=== PATIENT | female | born 1960 | race Asian ===

== ENCOUNTER 2018-06-24 17:46 | Emergency (ER) | payer SELFPAY ==
[~2018-06-24] VITALS: Ht 152.4 cm; Wt 58.6 kg
[2018-06-24 19:15] LABS: RAPID INFLUENZA A Negative (Negative); RAPID INFLUENZA B Negative (Negative)
--- NOTE | 2018-06-24 19:24 | NUR ---
ACHING ALL OVER, FEVER, ABD BLOATING X 1 DAY per triage note
[2018-06-24] MEDS ORDERED: KETOROLAC 30 MG/1 ML IVPush ONE (19:30)
[2018-06-24] MEDS ORDERED: KETOROLAC 30 MG/1 ML ONE (19:47)
--- NOTE | 2018-06-24 19:48 | NUR ---
ua in lab
[2018-06-24] MEDS ORDERED: KETOROLAC 30 MG/1 ML IM ONE (20:00)
[2018-06-24 20:02] LABS: BASOPHILS # (AUTO) 0.02 x10^3/uL (0-0.1); BASOPHILS % (AUTO) 0 % (0-1); EOSINOPHILS # (AUTO) 0.04 x10^3/uL (0-0.4); EOSINOPHILS % (AUTO) 1 % (1-7); LYMPHOCYTES # (AUTO) 1.55 x10^3/uL (1-3.4); LYMPHOCYTES % (AUTO) 17 % (22-44); MD NO; MEAN CORPUSCULAR HGB CONC 34.4 g/dL (32.4-35.8); MEAN CORPUSCULAR VOLUME 90.1 fL (80-100); MEAN PLATELET VOLUME 7.9 fL (7.4-10.4); MONOCYTES # (AUTO) 0.42 x10^3/uL (0.2-0.8); MONOCYTES % (AUTO) 5 % (2-9); NEUTROPHILS # (AUTO) 7.25 x10^3/uL (1.8-6.8); NEUTROPHILS % (AUTO) 78 % (42-75); PLATELET COUNT 239 x10^3/uL (130-400); RED BLOOD COUNT 4.69 x10^6/uL (3.82-5.3); RED CELL DISTRIBUTION WIDTH 13.1 % (9.6-15.2)
[2018-06-24 20:05] LABS: MICROSCOPIC AUTO
[2018-06-24 20:06] LABS: ALANINE AMINOTRANSFERASE 31 U/L (12-78); ALBUMIN 3.7 g/dL (3.4-5.0); ANION GAP 9 mmol/L (5-15); CALCIUM 9.6 mg/dL (8.5-10.1); CHLORIDE 101 mmol/L (98-107); CREATININE 1.13 mg/dL (0.55-1.02)
[2018-06-24 20:08] LABS: CULTURE INDICATED? YES
[2018-06-24 20:08] LABS: ALKALINE PHOSPHATASE 89 U/L (45-117); BILIRUBIN,TOTAL 1.3 mg/dL (0.2-1.0); TOTAL PROTEIN 7.9 g/dL (6.4-8.2)
[2018-06-24 21:12] VITALS: BP 112/47
--- NOTE | 2018-06-24 21:12 | NUR ---
given dc instruction with prescription d/t uti pt up ambulated to check out
== END 2018-06-24 21:15 | disposition home or self-care (01) ==
LOC: ED 21:09
DX: N39.0 Urinary tract infection, site not specified (principal); M79.10 Myalgia, unspecified site; E11.65 Type 2 diabetes mellitus with hyperglycemia; I10 Essential (primary) hypertension
CPT/HCPCS: 36415; 80053; 81001; 85025; 87077; 87086; 87400; 96372; 99283; J1885; 87186

== ENCOUNTER 2019-06-06 08:43 | Emergency (ER) | payer OTHER ==
[~2019-06-06] VITALS: Ht 154.9 cm; Wt 54.5 kg
[2019-06-06 09:35] LABS: BASOPHILS # (AUTO) 0.03 x10^3/uL (0-0.1); BASOPHILS % (AUTO) 0 % (0-1); EOSINOPHILS # (AUTO) 0.01 x10^3/uL (0-0.4); EOSINOPHILS % (AUTO) 0 % (1-7); LYMPHOCYTES # (AUTO) 0.92 x10^3/uL (1-3.4); LYMPHOCYTES % (AUTO) 10 % (22-44); MD NO; MEAN CORPUSCULAR HEMOGLOBIN 30.4 pg (27.0-34.8); MEAN CORPUSCULAR HGB CONC 33.3 g/dL (32.4-35.8); MEAN CORPUSCULAR VOLUME 91.6 fL (80-100); MEAN PLATELET VOLUME 8.8 fL (7.4-10.4); MONOCYTES # (AUTO) 0.36 x10^3/uL (0.2-0.8); MONOCYTES % (AUTO) 4 % (2-9); NEUTROPHILS # (AUTO) 8.11 x10^3/uL (1.8-6.8); NEUTROPHILS % (AUTO) 86 % (42-75); PLATELET COUNT 255 x10^3/uL (130-400); RED BLOOD COUNT 5.08 x10^6/uL (3.82-5.3); RED CELL DISTRIBUTION WIDTH 12.4 % (9.6-15.2)
[2019-06-06 09:38] LABS: MICROSCOPIC AUTO
[2019-06-06 09:41] LABS: ALANINE AMINOTRANSFERASE 22 U/L (12-78); ALBUMIN 3.6 g/dL (3.4-5.0); ANION GAP 11 mmol/L (5-15); CALCIUM 9.6 mg/dL (8.5-10.1); CHLORIDE 98 mmol/L (98-107)
[2019-06-06 09:44] LABS: ALKALINE PHOSPHATASE 101 U/L (45-117); BILIRUBIN,TOTAL 1.1 mg/dL (0.2-1.0); CREATININE 1.45 mg/dL (0.55-1.02); TOTAL PROTEIN 8.9 g/dL (6.4-8.2)
[2019-06-06 09:44] LABS: CULTURE INDICATED? YES
[2019-06-06 09:46] LABS: RAPID INFLUENZA A Negative (Negative); RAPID INFLUENZA B Negative (Negative)
--- NOTE | 2019-06-06 10:02 | NUR ---
labwork reviewed by EDPA , lab at bedside for additional testing.
[2019-06-06 10:07] LABS: PH, VENOUS 7.388 pH (7.320-7.420)
[2019-06-06 10:08] LABS: ACETONE, SERUM Small (20mg/dL) (Negative)
--- NOTE | 2019-06-06 10:35 | NUR ---
ED [facility] at bedside for assessment. bp and spo2 monitoring in place at this time. pt a&o, resps even and unlabored, pt c/o intermittent, mild, rt lower abd pain. pt updated with results and POC by EDPA and ED.
[2019-06-06] MEDS ORDERED: LIDOCAINE-MPF 1%, 5ML ONE (10:49)
[2019-06-06] MEDS ORDERED: CEFTRIAXONE 1,000 MG ONE (10:49)
[2019-06-06 10:59] VITALS: BP 105/51
[2019-06-06] MEDS ORDERED: CEFTRIAXONE 1,000 MG IM ONE (11:00)
--- NOTE | 2019-06-06 11:01 | NUR ---
PT MEDICATED PER EMAR, TOLERATED WELL. PT GIVEN PO FLUIDS PER CHANTAL TREJO'S INSTRUCTIONS . PT A&O, REPSS EVEN AND UNLABORED, NO COMPLAINT AT THIS TIME.
--- NOTE | 2019-06-06 11:21 | NUR ---
pt given dc instructions and script, educated regarding rx for omnicef. pt tolerating po fluids with no n/v. pt a&o, resps even and unlabored, no complaint at dc. pt amb to dc desk with steady gait accompanied by husnband. garcia at dc.
== END 2019-06-06 11:22 | disposition home or self-care (01) ==
LOC: ED 11:06
DX: N30.00 Acute cystitis without hematuria (principal); E11.65 Type 2 diabetes mellitus with hyperglycemia; I10 Essential (primary) hypertension
CPT/HCPCS: 36415; 71046; 80053; 81001; 82010; 82803; 83690; 85025; 87077; 87081; 87086; 87147; 87186; 87400; 87880; 93005; 96372; 99285; J0696